=== PATIENT | male | born 1990 | race Two or more races ===

== ENCOUNTER 2020-09-03 17:02 | Emergency (ER) | payer MEDICAID ==
[~2020-09-03] VITALS: Ht 172.7 cm; Wt 68.0 kg
--- NOTE | 2020-09-03 18:01 | NUR ---
Dr Coy at the bedside for MSE.
[2020-09-03] MEDS ORDERED: DOXY100C2 PO (18:11)
[2020-09-03] MEDS ORDERED: DOXYCYCLINE HYCLATE 100 MG TABLET PO ONE (18:15)
[2020-09-03 18:20] VITALS: BP 119/64
--- NOTE | 2020-09-03 18:20 | NUR ---
Patient discharged to home in stable condition. Written and verbal after care instructions given. Patient verbalizes understanding of instructions. Stressed follow up or return to ER for worsening s/s.
[2020-09-03] MEDS ORDERED: DOXYCYCLINE HYCLATE 100 MG TABLET ONE (18:23)
== END 2020-09-03 18:20 | disposition home or self-care (01) ==
LOC: ER 17:07
DX: L03.115 Cellulitis of right lower limb (principal)
CPT/HCPCS: A4663